=== PATIENT | male | born 1975 | race Caucasian/White ===

== ENCOUNTER 2019-12-12 09:12 | Day surgery (SDC) | payer OTHER ==
[~2019-12-12] VITALS: Ht 170.2 cm; Wt 56.7 kg
[~2019-12-12 09:12] MED LIST: BENZ100A PO; HYDR1TAB94 PO; IBUP800 PO; MEDICAL MARIJUANNA; PROM25 PO; SOMA350 M1 PO; Voltaren100 GM TOP
== END 2019-12-12 11:30 | disposition home or self-care (01) ==
LOC: ORSCSDS 09:12
PROVIDERS: Student in an Organized Health Care Education/Training Program
PROC: 0DBN8ZX Excision of Sigmoid Colon, Via Natural or Artificial Opening Endoscopic, Diagnostic (ICD-10-PCS; principal; 2019-12-12 10:30)
PROC: 0DBH8ZX Excision of Cecum, Via Natural or Artificial Opening Endoscopic, Diagnostic (ICD-10-PCS; principal; 2019-12-12 10:30)
DX: Z12.11 Encounter for screening for malignant neoplasm of colon (principal); Z80.0 Family history of malignant neoplasm of digestive organs; D12.0 Benign neoplasm of cecum; D12.5 Benign neoplasm of sigmoid colon; G80.9 Cerebral palsy, unspecified; Z79.899 Other long term (current) drug therapy
CPT/HCPCS: 88305; J2704; J7120